=== PATIENT | female | born 1975 | race Two or more races ===

== ENCOUNTER 2025-07-04 21:04 | Emergency (ER) | payer OTHER ==
[~2025-07-04] VITALS: Ht 165.1 cm; Wt 68.0 kg
[2025-07-04 23:16] LABS: BASO % 1.0 % (0.1-1.2); EOS # 0.16 (0.04-0.54); EOS % 2.1 % (0.7-7.0); LYMPH # 2.04 (1.18-3.74); LYMPH % 26.4 % (19.3-53.1); MEAN PLATELET VOLUME 9.10 fl (9.4-12.4); MONO # 0.85 (0.24-0.82); MONO % 11.0 % (4.7-12.5); NEUT # 4.56 (1.56-6.13); NEUT % 58.9 % (34.0-71.1); RED CELL DISTRIBUTION WIDTH 12.8 % (11.6-14.4)
[2025-07-05 00:01] LABS: BUN CREA RATIO 25.0 (7.0-25.0); CREATININE SERUM 0.69 mg/dL (0.55-1.02); GFR 91.19; GLUCOSE FASTING 97.0 mg/dL (65-100); OSMOLALITY SERUM 279.0 MOSM/KG (275-295)
== END 2025-07-05 02:31 ==
LOC: ER 21:05
PROVIDERS: General Practice
DX: R07.89 Other chest pain (principal); R20.2 Paresthesia of skin; R11.0 Nausea